=== PATIENT | female | born 1965 | race Caucasian/White ===

== ENCOUNTER 2019-08-22 05:13 | Observation (INO) ==
[2019-08-15 08:58] LABS: BASO# 0.03 X1000 (0.0-0.2); BASO% 0.5 % (0.0-0.8); EOS# 0.12 X1000 (0.0-0.7); EOS% 2.1 % (0.0-10.0); HEMATOCRIT 44.4 % (37.0-47.0); HEMOGLOBIN 14.5 g/dL (12.0-16.0); IMM GRAN# 0.02 X1000 (0.0-0.04); IMM GRAN% 0.3 % (0.0-0.5); LYMPH# 1.45 X1000 (1.2-3.4); LYMPH% 24.8 % (20.5-51.1); MCH 29.2 PG (27-31); MCHC 32.7 g/dL (33-37); MCV 89.3 FL (81-99); MONO# 0.31 X1000 (0.11-0.59); MONO% 5.3 % (1.7-9.3); MPV 9.3 FL (7.4-10.4); NEUT# 3.91 X1000 (1.4-6.5); PLT 261 X1000 (130-400); RBC 4.97 XMIL (4.2-5.4); RDW 12.5 % (11.5-14.5); WBC 5.84 X1000 (4.8-10.8)
--- NOTE | 2019-08-21 09:55 | HISTORY AND PHYSICAL ---
HISTORY: The patient is a 54-year-old female who has been followed through our office for many years. She was initially followed by Dr. Nicole Kent and has undergone a prior mid urethral sling placement approximately 8 years ago. The patient has been followed recently because of postmenopausal bleeding and increasing pelvic pressure, and on examination she was found to have some symptomatic pelvic organ prolapse with the postmenopausal bleeding. However, she has had a prior endometrial ablation. Decision has been made to proceed with surgical correction of the postmenopausal bleeding. Computer timed out, forget this dictation. INCOMPLETE REPORT--DICTATION ENDS HERE. cc: Devon Rea MD
--- NOTE | 2019-08-21 10:03 | HISTORY AND PHYSICAL ---
DATE OF SURGERY: 08/22/2019. HISTORY: The patient is a 54-year-old female who has been followed by, initially, Dr. Perez Kent and then subsequently Dr. Arango, and then in the most recent years by myself. The patient has a history of prior endometrial ablation as well as incontinence which resulted in placement of a transobturator mid urethral sling. [place] out [place] and was gone for 4 or 5 years, and has recently returned with complaints of pelvic pressure and now some postmenopausal bleeding. The patient underwent an endometrial biopsy as well as an ultrasound. The biopsy showed weakly proliferative endometrium. However, in light of her prolapse and her postmenopausal bleeding, she is admitted at this time for da Jose Cruz supracervical hysterectomy with abdominal sacrocolpopexy. The risks and benefits of this were explained at length. She understands and is wishing to proceed with surgical intervention. PAST MEDICAL HISTORY: Positive for depression. Negative for diabetes, hypertension, or asthma. It is also positive for anxiety disorder. PAST SURGICAL HISTORY: Positive for sling, endometrial ablation, jaw surgery, and bilateral tubal ligation. She is noted to be a para 1-0-0-1 with one forceps delivery. ALLERGIES: No known drug allergies. CURRENT MEDICATIONS: Lexapro and Elavil but now she is reporting that she is not taking any medications. SOCIAL HISTORY: Positive for tobacco but stopped many years ago. Negative for drugs or alcohol. PHYSICAL EXAMINATION: VITAL SIGNS: BMI is 30. HEENT: Normocephalic, atraumatic. PERRLA, EOMI. No thyromegaly. CV: Regular rate and rhythm without murmur, gallop, or rub. PULMONARY: Clear to auscultation and percussion. ABDOMEN: Soft. : Shows a second-degree prolapse, BA is the leading edge at 0 + 1. NEUROLOGIC: Afocal. EXTREMITIES: Without clubbing, cyanosis, or edema. ASSESSMENT AND PLAN: Patient with mild pelvic organ prolapse, history of prior mid urethral sling, postmenopausal bleeding, who is admitted at this time for a supracervical hysterectomy and sacrocolpopexy. The risks and benefits have been discussed at length. She understands and is wishing to proceed. cc: Devon Rea MD
[2019-08-22] MEDS ORDERED: KEFZOL 1 GM/D5W 2 GM/100 ML IVPB ONE (05:41)
[2019-08-22] MEDS ORDERED: LR 1,000 ML ONE ×3 (05:41→10:05)
[2019-08-22] MEDS ORDERED: VERSED ONE (05:59)
[2019-08-22] MEDS ORDERED: FENTANYL ONE ×2 (05:59→07:07)
[2019-08-22] MEDS ORDERED: DIPRIVAN 1% ONE (06:00)
[2019-08-22] MEDS ORDERED: D10W 1,000 ML ONE (06:45)
[2019-08-22] MEDS ORDERED: MARCAINE 0.25% PF/EPI 1:200,000 ONE (06:45)
--- NOTE | 2019-08-22 06:45 | H&P REVIEW ---
H&P Update H&P Review: H&P was reviewed and patient was examined, No change has occurred in the patient's condition
[2019-08-22 08:15] LABS: URINE SOURCE CATH
[2019-08-22 08:20] LABS: BILIRUBIN URINE NEGATIVE (NEGATIVE); BLOOD URINE NEGATIVE (NEGATIVE); COLOR STRAW; GLUCOSE URINE NEGATIVE (NEGATIVE); KETONE URINE NEGATIVE (NEGATIVE); LEUKOCYTES URINE NEGATIVE (NEGATIVE); NITRITE URINE NEGATIVE (NEGATIVE); PROTEIN URINE NEGATIVE (NEGATIVE); SP GRAVITY URINE 1.008; TURBIDITY URINE CLEAR (CLEAR); UROBILINOGEN URINE NORMAL (NORMAL)
[2019-08-22 08:22] LABS: UR EPITHELIAL CELLS <10 /HPF (<10); URINE BACTERIA NEGATIVE /HPF; URINE RBC <10 /HPF (<10); URINE WBC <10 /HPF (<10)
[2019-08-22] MEDS ORDERED: TORADOL ONE (10:05)
[2019-08-22] MEDS ORDERED: ZOFRAN ONE (10:06)
[2019-08-22] MEDS: DILAUDID ONE ×4 (10:25→10:44)
[2019-08-22] MEDS ORDERED: ZOFRAN ODT PO PRN (11:31)
[2019-08-22] MEDS: LR 1,000 ML IV SCH ×2 (11:46→19:34)
[2019-08-22] MEDS: COLACE PO SCH ×2 (11:47→22:31)
[2019-08-22] MEDS: PERIDEX MT SCH ×2 (11:47→22:32)
[2019-08-22] MEDS: NORCO-5 PO PRN ×2 (14:46→19:43)
[2019-08-22] MEDS: TORADOL IV SCH ×2 (15:57→22:31)
--- NOTE | 2019-08-22 19:59 | PROGRESS NOTE ---
DATE: 08/22/2019 TIME: 4:45 p.m. SUBJECTIVE: Patient is alert oriented x3. OBJECTIVE: Afebrile. Vital signs are stable. Urine output. ASSESSMENT/PLAN: Routine postoperative care. We discussed weight loss and plans for in future health care. We will plan on discharge in the morning after completion of her voiding trial. cc: Devon Rea MD
[2019-08-23] MEDS: TORADOL IV SCH (03:32)
[2019-08-23] MEDS: LR 1,000 ML IV SCH (03:32)
[2019-08-23 08:06] VITALS: BP 151/68
[2019-08-23] MEDS: COLACE PO SCH (09:26)
[2019-08-23] MEDS: NORCO-5 PO PRN (09:26)
--- NOTE | 2019-08-23 22:28 | DISCHARGE SUMMARY ---
ADMISSION DATE: 08/22/2019 DISCHARGE DATE: 08/23/2019 PRINCIPAL DIAGNOSES: 1. Symptomatic pelvic organ prolapse. 2. Postmenopausal bleeding. PROCEDURE: Da Jose Cruz supracervical hysterectomy, abdominal sacrocolpopexy and cystoscopy. HISTORY: The patient is a 54-year-old female who was having increasing problems with bleeding as well as pelvic organ prolapse. She had a prior sling placed approximately 10 years ago. She was admitted for definitive surgical intervention after refusing pessary management. HOSPITAL COURSE: The patient with the above-stated procedure. Blood loss at that time was approximately 40 mL. Her postoperative course has been uncomplicated. She is currently undergoing voiding trial. She will be discharged home, with instructions for followup in 3 weeks. DISCHARGE MEDICATIONS: Moca, Toradol and Colace. DISCHARGE INSTRUCTIONS: She was instructed in regular diet and decreased activity. cc: Devon Rea MD
--- NOTE | 2019-08-31 17:07 | OPERATIVE NOTE ---
PROCEDURE DATE: 08/22/2019 PREOPERATIVE DIAGNOSES: 1. Menorrhagia. 2. Pelvic organ prolapse. POSTOPERATIVE DIAGNOSES: 1. Menorrhagia. 2. Pelvic organ prolapse. PROCEDURE: Da Jose Cruz supracervical hysterectomy with abdominal sacrocolpopexy. SURGEON: Devon Rea MD ANESTHESIA: General. ESTIMATED BLOOD LOSS: 25 mL. HISTORY: This is a repeat dictation because of some type of computer issue. The initial dictation was lost and the history and physical was subsequently also truncated and so I am uncertain as to the exact details of this procedure because I am being asked to re-dictate it on August 31. DESCRIPTION OF PROCEDURE: The patient was taken to the operating room and placed in the supine position. After adequate general anesthesia was obtained, she was placed in the [facility]. Her abdomen and vagina were prepped and draped in the usual fashion. An umbilical incision was made after infiltration of 0.25% Marcaine with epinephrine and a 12 mm port and sheath were introduced through this incision into the abdominal cavity. Pelvic contents were visualized. Therefore, insufflation with CO2 to an intra-abdominal pressure of 14 was performed. Left-sided ports were placed under direct visualization after infiltration with the same local anesthetic in an arrangement consistent with sacrocolpopexy. Right-sided ports were placed in a similar fashion as well. The patient was placed in deep Trendelenburg position and at this time, EEA sizers were placed within the vagina and the rectum and Warren catheter was placed. Output was noted to be clear and specimen was collected. The robot was docked in the usual fashion. Hot scissors were in the right hand, bipolar PK was in the left hand, and arm 3 contained the single- tooth tenaculum which was utilized to manipulate the uterus. At this time, we started initially by elevating the left fallopian tube away from the ovary. We clamped, cauterized, and cut the mesosalpinx and continued clamp, cauterize, and cut fashion through the meso region, the round ligament, and then down the broad ligament in the typical fashion using a clamp, cauterize, and cut technique. We then began peritonealization anteriorly, dropping the bladder well below the operative site and then clamped and cauterized the vessels along the left-hand side, but did not cut through them. We re-manipulated the uterus to expose the right side in a similar fashion, began with the mesosalpinx of the fallopian tube in a clamp, cauterize, and cut fashion through the round ligament and then down the cardinal ligament in a similar fashion. We continued our peritonealization on the right-hand side, exposing the uterine vessels on the right and then clamped and cauterized these and cut through them just below the level of the insertion of the uterosacral ligaments. We went back to the left side and then also cut through the uterine vessels on the left-hand side just above the insertion. We confirmed that the bladder was well below the operative site and then using a single blade of the scissors, we extirpated the corpus of the uterus from the cervical stump. We placed the corpus then in the appendiceal bed and regrasped this remaining portion of the cervical stump. We then cauterized the endocervical canal and continued to elevate the anterior portion of the cervix, exposing the vesicovaginal space. We then continued primarily sharp dissection through the vesicovaginal space, trying to stay in the avascular plane. We got down to the level just above the Warren bulb, indicating that we had good anterior dissection. We turned our attention towards the posterior compartment and again continued with our rectovaginal dissection in a similar fashion. After completion of this, we then changed our instruments out to a Cardiere grasper and 2 needle drivers. Using the 2 needle drivers and the Cardiere grasper, we primarily began in the anterior compartment. We trimmed our mesh for the appropriate lengths based on our dissections and the distance between the sacral promontory and the cervix and placed the mesh intra-abdominally. Using the 2.0 [place]-Donte suture, we started in the vesicovaginal space securing the mesh anteriorly with interrupted sutures. All sutures were thrown with an initial surgeon's throw and then 4 half throws after this. We placed approximately 12 sutures anteriorly and then went to the posterior compartment and placed approximately 10 to 12 sutures in the posterior compartment with the same knot arrangement. The third arm was brought up to the sacral promontory and we placed 2 sutures through the mesh, through the anterior longitudinal ligament. The longitudinal space had already been developed when we had our scissors there but I do not think I dictated that earlier in this report. We also created our tunnel, paying attention to the ureter laterally and the colon medially. The third arm now had been brought up and so we placed our 2 sutures through the anterior longitudinal ligament, being careful not to get too deep into the L5-S1 disk space. The excessive mesh was trimmed off. We removed the [place]-Donte suture that was remaining and replaced it with a V-Loc suture and started at the sacral promontory re-peritonealizing, coming down to the Y, and then pursestring suturing around anteriorly and posteriorly to close all this space off. Copious amounts of irrigation was performed. Hemostasis was observed at all sites. Our blood loss had been minimal at this point. Decision was made to terminate this portion of the procedure. All equipment was removed from the patient's abdomen and the robot was undocked. We used a Jayden- Norris CloseSure System to close the fascia and peritoneum of the umbilical incision and the assistance port which was on the right side. After doing this, nursing services closed all 5 skin incisions with 4.0 Vicryl ligature in a subcuticular fashion and surgical glue. Vaginally we had excellent support. We did not need to place a sling because she had a prior mid-urethral sling by another physician. The posterior compartment looked adequate and no further work needed to be done in this area, I do not believe. However, I do not have the paper written operative report that I did during the OR and because this is a repeat dictation, it is very possible that I did a distal posterior compartment but do not have that information available at this time. cc: Devon Rea MD
== END 2019-08-23 09:30 | disposition home or self-care (01) ==
LOC: PAT 05:13 → 4N 05:13 → OPS 05:13
PROVIDERS: ADMIT Obstetrics & Gynecology; ATTEND Obstetrics & Gynecology